=== PATIENT | male | born 1990 | race Hispanic/Latino ===

== ENCOUNTER → 2022-04-27 12:51 | Outpatient (CLI) | payer OTHER, SELFPAY ==
--- NOTE | 2022-04-27 12:54 | DI.MRI.S_ITS ---
PROCEDURE: MR KNEE LT WO CON INDICATIONS: Left knee pain TECHNIQUE: Noncontrast sagittal PD fast spin echo and T2 fast spin echo with fat saturation, sagittal 3-D FLASH with fat saturation; coronal T1 spin echo and PD fast spin echo with fat saturation, and axial PD fast spin echo with fat saturation through the knee. COMPARISON: None. FINDINGS: Image quality: Excellent. Menisci: There is oblique tear of the medial skills at the junction of the body and posterior horn (series 10, image 22). There is intrasubstance degeneration of the anterior horn and posterior horn of the lateral meniscus. The meniscal root ligaments appear intact. Cruciate ligaments: Patient is status post anterior cruciate ligament repair. There is at least partial-thickness of the distal ACL graft. There is widening of the tibial tunnel and cystic changes. The posterior cruciate ligament appears thickened with heterogeneous signal likely secondary to mucoid degeneration. Medial structures: The medial collateral ligament appears intact. Edema in the semimembranosus tendon insertions and posterior medial joint capsule consistent with contusions. The meniscocapsular junction appears intact. Visualized portions of the pes anserinus tendons appear intact. No abnormal bursal fluid. Lateral structures: The lateral collateral ligament, long and short heads of the biceps femoris tendon appear intact. The popliteus tendon appears normal. Iliotibial band appears normal, without findings to suggest friction syndrome. Anterior structures: The quadriceps and patellar tendons appear intact. Patellar alignment is normal. No femoral trochlear dysplasia or ventral trochlear prominence. No edema in the infrapatellar fat pad. No localized arthrofibrosis (cyclops lesion) in the anterior intercondylar notch. Bones and cartilage: There is mild anterior tibial translation. Marrow edema of the posterior aspect of the medial and lateral tibial plateaus. Mild cartilage thinning and fibrillation of the medial femorotibial compartment. Joint space: There is small knee joint effusion. Trace Garcia's cyst. No intra-articular bodies. Normal appearing synovial plicae are incidentally noted. IMPRESSION: 1. Postsurgical changes related to anterior cruciate ligament repair. There is at least partial-thickness tear of the distal ACL graft. Mild widening of the tibial tunnel and cyst formation are noted. 2. Oblique tear of the medial meniscus at the junction of the body and posterior horn. 3. Contusions of the semimembranous tendon insertions and posterior medial joint capsule. 4. There is mild anterior tibial translation. Bone marrow edema is present in the posterior aspect of the medial and lateral tibial plateaus. 5. Small knee joint effusion. 6. Mild cartilage thinning and fibrillation of the medial femorotibial compartment. Dictated by: Trisha Lopes M.D. on 04/29/2022 at 8:12 Approved by: Trisha Lopes M.D. on 04/29/2022 at 9:10
== END ==
PROVIDERS: Referring Provider Orthopaedic Surgery; Visit Provider Orthopaedic Surgery
DX: T84.410A Breakdown (mechanical) of muscle and tendon graft, initial encounter (principal); S83.242A Other tear of medial meniscus, current injury, left knee, initial encounter; S80.02XA Contusion of left knee, initial encounter; M25.462 Effusion, left knee; M25.562 Pain in left knee; M25.369 Other instability, unspecified knee
CPT/HCPCS: 73721